=== PATIENT | female | born 1940 | race Caucasian/White ===

== ENCOUNTER 2021-12-25 21:17 | Observation (INO) ==
[2021-12-25] MEDS ORDERED: Naloxone 0.4 MG/ML INJ IVP PRN (23:24)
[2021-12-25] MEDS ORDERED: Ondansetron 4 MG/2 ML VIAL IVP PRN (23:44)
[2021-12-25] MEDS ORDERED: Acetaminophen 325 MG TABLET PO PRN (23:44)
[2021-12-25] MEDS ORDERED: Melatonin 3 MG TABLET PO PRN (23:44)
[2021-12-26] MEDS ORDERED: Gadolinium Contrast Agent (WT Based) IV PRN (01:04)
[2021-12-26 03:55] LABS: Basophils # 0.1 K/mcL (0.0-0.2); Basophils % 0.6 %; Eosinophils # 0.2 K/mcL (0.0-0.6); Eosinophils % 2.1 %; Hematocrit 40.5 % (35.3-44.9); Hemoglobin 13.4 g/dL (11.5-15.4); Immature Granulocytes % 0.3 % (0-4); Mean Corpuscular HGB Conc 33.1 g/dL (31.6-35.5); Mean Corpuscular Volume 90.8 fL (83.0-100.0); Mean Platelet Volume 8.5 fL (9.4-12.4); Monocytes # 0.8 K/mcL (0.0-1.3); Monocytes % 8.9 %; Neutrophils # 5.7 K/mcL (1.6-8.9); Platelet Count 248 K/mcL (140-400); Red Blood Count 4.46 M/mcL (3.82-4.97); Red Cell Distribution Width 13.2 % (11.5-14.5); Segmented Neutrophils % 65.1 %; White Blood Count 8.7 K/mcL (4.3-11.1)
[2021-12-26] MEDS: Ringers Solution, Lactated 1,000 ML IVC SCH ×2 (04:00→11:16)
[2021-12-26 04:19] LABS: Calcium 8.2 mg/dL (8.6-10.3); Magnesium 1.8 mg/dL (1.6-2.6); Potassium 3.7 mEq/L (3.5-5.1)
[2021-12-26] MEDS ORDERED: *HR* Enoxaparin 40 MG/0.4 ML SYRINGE SQ SCH (06:00)
[2021-12-26 11:19] VITALS: BP 166/88; PULSE 82; TEMP 98.7; O2SAT 92
== END 2021-12-26 14:36 | disposition home or self-care (01) ==
LOC: 3ANU
PROVIDERS: ADMIT Student in an Organized Health Care Education/Training Program; ATTEND Student in an Organized Health Care Education/Training Program